=== PATIENT | female | born 1985 | race American Indian/Alaskan Native ===

== ENCOUNTER 2017-01-26 20:44 | Emergency (ER) | payer SELFPAY ==
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
[2017-01-27] MEDS ORDERED: XYLOCAINE 1% 20 mL INFILTRATI ONE (01:43)
[2017-01-27] MEDS ORDERED: TRIPLE ANTIBIOTIC TP ONE (01:43)
[2017-01-27] MEDS ORDERED: MOTRIN PO ONE (01:43)
[2017-01-27] MEDS ORDERED: VALIUM IM ONE (01:43)
[2017-01-27] MEDS ORDERED: NACL 0.9% 500 ML IR ONE (01:59)
[2017-01-27] MEDS ORDERED: NACL 0.9% IR ONE (02:14)
[2017-01-27 04:02] VITALS: BP 102/68
== END 2017-01-27 04:04 | disposition home or self-care (01) ==
LOC: ED 20:44
DX: S61.411A Laceration without foreign body of right hand, initial encounter (principal); W26.0XXA Contact with knife, initial encounter; Y93.G1 Activity, food preparation and clean up; Y92.89 Other specified places as the place of occurrence of the external cause; Y99.8 Other external cause status; Z87.891 Personal history of nicotine dependence
CPT/HCPCS: 12002; 96372; 99282; J3360; A6250

== ENCOUNTER 2017-02-15 09:44 | Emergency (ER) | payer SELFPAY ==
[2017-02-15 10:03] VITALS: BP 98/62
--- NOTE | 2017-02-15 10:23 | Emergency Department Report ---
Suture/Staple Removal - HPI Chief Complaint: Laceration/Recheck/Suture Stated Complaint: RT HAND STITCHES REMOVED Time Seen by Provider: 02/15/17 10:12 When Sutures or Benigno Placed: >14 Days Ago Wound Location: thumb right ED Review of Systems ROS: Stated complaint: RT HAND STITCHES REMOVED Other details as noted in HPI Comment: All other systems reviewed and negative Constitutional: no symptoms reported, see HPI. denies: chills Eyes: as per HPI. denies: eye pain ENT: as per HPI. denies: ear pain, throat pain Respiratory: no symptoms reported, see HPI. denies: cough, orthopnea Cardiovascular: as per HPI. denies: chest pain, palpitations, dyspnea on exertion Endocrine: no symptoms reported, see HPI. denies: excessive sweating, flushing Gastrointestinal: as per HPI. denies: abdominal pain, nausea, vomiting Genitourinary: as per HPI. denies: urgency, dysuria Musculoskeletal: as per HPI. denies: back pain, joint swelling, arthralgia Skin: as per HPI, lesions. denies: change in color, change in hair/nails, pruritus Neurological: as per HPI. denies: headache, weakness Psychiatric: as per HPI. denies: anxiety, depression Hematological/Lymphatic: as per HPI. denies: easy bleeding ED Past Medical Hx - Past Medical History Previous Medical History?: No Hx HIV: No - Surgical History Past Surgical History?: No - Social History Smoking Status: Never Smoker Substance Use Type: None - Medications Home Medications: Home Medications Medication Instructions Recorded Confirmed Last Taken Type Acetaminophen/Codeine [Tylenol 1 tab PO Q6H PRN #12 tab 01/27/17 Unknown Rx /Codeine # 3 tab] Cephalexin [Keflex] 500 mg PO Q12HR #10 cap 01/27/17 Unknown Rx Ibuprofen [Motrin] 800 mg PO Q8HR PRN #30 tablet 01/27/17 Unknown Rx Suture Removal Exam - Exam General: Vital signs noted. No distress. Alert and acting appropriately. full rom n/v intact good pulses rapid cap refill suture removal- routine Wound: No Pathologic Erythema, No Tenderness, No Drainage, No Pus, No Wound Dehiscence Other Systems: All other systems reviewed and are unremarkable. ED Course Vital Signs 02/15/17 09:59 Temperature 98.1 F Pulse Rate 89 Respiratory 17 Rate Blood Pressure 98/62 O2 Sat by Pulse 98 Oximetry - Reevaluation(s) Reevaluation #1: 02/15/17 10:21 no s/s of infection wound edges well approximated took her anbx n/v intact full rom sutures d/c wo difficulty dc home ED Recheck MDM - Core Measures Measure Exclusions: not indicated - Differential Diagnosis Suture/Staple Removal - Medical Decision Making suture removal wo infection Critical care attestation.: If time is entered above; I have spent that time in minutes in the direct care of this critically ill patient, excluding procedure time. ED Disposition Clinical Impression: Visit for suture removal Disposition: DC-01 TO HOME OR SELFCARE Is pt being admited?: No Does the pt Need Aspirin: No Condition: Stable Instructions: Suture Removal (ED) Additional Instructions: keep wound clean and dry it will continue to heal form inside out Referrals: PRIMARY CARE, [Primary Care Provider] - 3-5 Days Time of Disposition: 10:22
== END 2017-02-15 10:35 | disposition home or self-care (01) ==
LOC: ED 09:44
DX: S61.411D Laceration without foreign body of right hand, subsequent encounter (principal); X58.XXXD Exposure to other specified factors, subsequent encounter

== ENCOUNTER 2020-06-27 17:51 | Emergency (ER) | payer OTHER ==
[2020-06-27 18:02] VITALS: BP 108/68
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
== END 2020-06-28 00:30 | disposition home or self-care (01) ==
LOC: ED 17:51
DX: S39.012A Strain of muscle, fascia and tendon of lower back, initial encounter (principal); S16.1XXA Strain of muscle, fascia and tendon at neck level, initial encounter; Z79.899 Other long term (current) drug therapy; V49.49XA Driver injured in collision with other motor vehicles in traffic accident, initial encounter; Y92.410 Unspecified street and highway as the place of occurrence of the external cause; Y93.89 Activity, other specified; Y99.8 Other external cause status
CPT/HCPCS: 72040; 72100; 99283